=== PATIENT | female | born 1995 | race Caucasian/White ===

== ENCOUNTER 2019-01-05 10:10 | Emergency (ER) | payer OTHER, MEDICAID, SELFPAY ==
[2019-01-05 10:10] VITALS: BP 114/72; PULSE 95; RESP 18; TEMP 37.1; O2SAT 100
--- NOTE | 2019-01-05 10:13 | ED_ITS ---
HPI - Female Genitourinary General Chief complaint: Urogenital-Female Stated complaint: Bladder Infection Time Seen by Provider: 01/05/19 10:12 Source: patient Mode of arrival: ambulatory Limitations: no limitations History of Present Illness HPI Narrative: otherwise healthy 23-year-old female here for evaluation of several days of dysuria, hematuria, lower abdominal tenderness, lower back pain, urinary frequency. She states that several weeks ago she was treated for a bladder infection. She states this feels very similar to that. She was treated with a medication that sounds like it was Macrobid. She is unsure if this is exactly what it was. States that her symptoms resolved after the treatment without antibiotic however they now have returned. Prior to the dysuria couple weeks ago her last urinary infection was greater than 1 year ago. She has not had any vomiting or fevers. Related Data Previous Rx's Medication Instructions Recorded sulfamethoxazole-trimethoprim 1 tab PO BID 3 Days #6 tab 01/05/19 [Bactrim DS] Review of Systems Constitutional Denies fever(s) Cardiovascular Denies chest pain and Denies dyspnea Respiratory Denies dyspnea Gastrointestinal Gastrointestinal: Reports abdominal pain ( Lower abdomen), Denies diarrhea, Denies nausea and Denies vomiting Genitourinary Reports hematuria, Reports dysuria, Reports urinary hesitancy and Reports urinary urgency Musculoskeletal Denies myalgias and Denies arthralgias Integumentary/Breasts Denies rash Neurologic Denies behavioral changes Psychiatric Denies behavioral changes Hematologic/Lymphatic Denies easy bleeding and Denies easy bruising PFSH Medical History Healthy adult (Acute) Social History lives independently: Yes Smoking Status: Never smoker Social History lives independently: Yes Smoking Status: Never smoker Exam Initial Vital Signs Initial Vital Signs: Vital Signs Temperature 98.8 F 01/05/19 10:10 Pulse Rate 95 H 01/05/19 10:10 Respiratory Rate 18 01/05/19 10:10 Blood Pressure 114/72 01/05/19 10:10 Pulse Oximetry 100 01/05/19 10:10 Const General: cooperative, comfortable, well developed, well groomed and No acute distress Orientation: alert, awake and oriented x3 HENMT Head: normal to inspection and normocephalic Resp Effort & Inspection: normal respiratory effort Auscultation: clear to auscultation bilaterally Cardio Rate: regular rate Rhythm: regular rhythm Pulses: radial pulses present GI Inspection: non-distended Palpation: soft, No firm and No tender Back/Spine/Pelvis Back: No CVA tenderness Skin General: no rashes or lesions noted Neuro General: alert, awake and oriented x3 Extrem General: normal to inspection and capillary refill normal Psych Appearance: grossly normal and well kempt Course Orders Ordered: ED Orders 01/05/19 10:27 Ictotest Urine Stat Test Urine Stat Urinalysis and Microscopic Stat 01/05/19 10:54 Urine Culture Stat Vital Signs - 8 hr 01/05/19 10:10 Temperature 98.8 F Pulse Rate 95 H Respiratory Rate 18 Blood Pressure 114/72 Pulse Oximetry 100 [facility] - Female Genitourinary Lab Data Attestation: I reviewed the patient's lab results. Lab Results 01/05/19 01/05/19 Range/Units 10:27 10:27 Urine Color Red Urine Appearance Cloudy Urine pH 8.0 (4.5-8.0) Ur Specific [place] 1.020 (1.000-1.035) Urine Protein 3+ H (Negative) Urine Glucose (UA) Negative (Negative) g/dL Urine Ketones Negative (NEGATIVE) Urine Occult Blood 3+ H (Negative) Urine Nitrate Positive H (Negative) Urine Bilirubin 1+ H (NEGATIVE) Urine Ictotest Positive H (Negative) Urine Urobilinogen 0.2 (0.2) E.U./dL Ur Leukocyte Esterase 2+ H (NEGATIVE) Urine RBC 30-100/hpf H (0-5/HPF) Urine WBC 30-100/hpf H (0-5/HPF) Ur Squamous Epith Cells 5-10 /hpf H Urine Bacteria None seen (None) Ur Culture Indicated? Cult not indicated Urine Test Negative (Negative) [facility] Narrative Medical decision making narrative: with patient's symptoms today and her urinalysis I am concerned about a urinary tract infection. It sounds like they last urinary tract infection she was treated with Macrobid. She stated that she did not tolerate this medicine well. Will give her another antibiotic. I urine culture was ordered today to check sensitivities. This will help in the future if her symptoms do not improve. She was given return precautions. She expressed understanding and agreement with plan. She has no indication of pyelonephritis today. Discharge Plan Departure Patient Disposition: Home Clinical Impression: Urinary tract infection Qualifiers: Urinary tract infection type: acute cystitis Hematuria presence: with hematuria Qualified Code(s): N30.01 - Acute cystitis with hematuria Instructions: DI for Urinary Tract Infection (UTI) Activity Restrictions/Additional Instructions: Be sure you increase your fluid intake. Take the antibiotics as directed. Contact your primary care doctor for a follow-up. Return to the emergency department for any new or worsening symptoms Prescriptions: New sulfamethoxazole-trimethoprim [Bactrim DS] 800-160 mg tablet 1 tab PO BID 3 Days Qty: 6 RF: 0
[2019-01-05 10:29] LABS: Bacteria Urine None Seen
[2019-01-05 10:31] LABS: Appearance Urine UA CLOUDY; Bilirubin Urine UA 1+ (NEGATIVE); Color Urine UA RED; Glucose Urine UA NEGATIVE (Negative); Ketones Urine UA NEGATIVE (NEGATIVE); Leukocyte Esterase Urine UA 2+ (NEGATIVE); Nitrite Urine UA POSITIVE (Negative); Occult Blood Urine UA 3+ (Negative); Protein Urine UA 3+ (Negative); Urobilinogen Urine UA 0.2 E.U./dL (0.2)
[2019-01-05 10:47] LABS: Pregnancy Test Urine Negative (Negative)
[2019-01-05 10:52] LABS: RBC Urine 30-100/HPF (0-5/HPF); WBC Urine 30-100/HPF (0-5/HPF)
[2019-01-05 10:53] LABS: Culture Indicated Urine Cult Not Indicated; Squamous Epithelial Cell Urine 5-10 /HPF
[2019-01-05 11:05] LABS: Ictotest Urine Positive (Negative)
[2019-01-05 11:18] VITALS: BP 110/66; PULSE 73; RESP 16; O2SAT 100
== END 2019-01-05 11:20 | disposition home or self-care (01) ==
LOC: ED 11:21
PROVIDERS: Emergency Provider Emergency Medicine
DX: N30.01 Acute cystitis with hematuria (principal)
CPT/HCPCS: 81001; 81025; 87077; 87086; 87186; 99282; 99283

== ENCOUNTER → 2019-04-27 10:38 | Outpatient (CLI) | payer OTHER, MEDICAID, SELFPAY ==
[2019-04-27 12:15] LABS: Hematocrit 41.4 % (36-46); Hemoglobin 13.8 g/dL (12.0-16.0); Mean Corpuscular HGB Conc 33.3 % (30-36); Mean Corpuscular Hemoglobin 28.7 PG (26-34); Mean Corpuscular Volume 86.1 fL (80-100); Platelet Count 190 X10^3/uL (150-400); Red Blood Cell Count 4.81 X10^6/uL (4.0-5.2); Red Cell Distribution Width 13.9 % (11.6-14.8); White Blood Cell Count 5.8 X10^3/uL (4.5-11.0)
[2019-04-27 12:35] LABS: Alanine Aminotransferase 13 IU/L (9-52); Albumin 4.5 g/dL (3.5-5.0); Albumin Globulin Ratio 1.5 (1.0-2.8); Alkaline Phosphatase 81 U/L (38-126); Aspartate Aminotransferase 24 IU/L (14-36); Bilirubin Total 0.7 mg/dL (0.2-1.3); Blood Urea Nitrogen 9 mg/dL (7-17); Calcium 8.9 mg/dL (8.4-10.2); Carbon Dioxide 24 mmol/L (22-32); Chloride 106 mmol/L (98-107); Estimated Glomerular Filt Rate > 60.0 mL/min (>60); Glucose 80 mg/dL (70-100); HEMOLYSIS 33 (0-50); Potassium 4.4 mmol/L (3.4-5.1); Sodium 139 mmol/L (137-145); Total Protein 7.5 g/dL (6.3-8.2)
== END ==
PROVIDERS: Visit Provider Nurse Practitioner Family
DX: N93.9 Abnormal uterine and vaginal bleeding, unspecified (principal); Z00.00 Encounter for general adult medical examination without abnormal findings
CPT/HCPCS: 36415; 80053; 85027

== ENCOUNTER 2019-05-17 05:54 | Emergency (ER) | payer OTHER, MEDICAID, SELFPAY ==
[2019-05-17 05:56] VITALS: BP 135/70; PULSE 107; RESP 20; TEMP 37.6; O2SAT 98; BMI 23.6
--- NOTE | 2019-05-17 06:06 | ED.FEVER ---
HPI - Fever General Chief Complaint: Upper Respiratory Symptoms Stated Complaint: fever 104 temp body aches Time Seen by Provider: 05/17/19 05:57 Source: patient and other (boyfriend) Mode of arrival: ambulatory Limitations: no limitations History of Present Illness HPI Narrative: 23-year-old female comes emergency department with complaint of fever this morning about 5:00 a.m.. Patient states she was 104 F. She states she did take some Tylenol afterwards. Patient states that she has felt feverish body aches for about 2 days. Patient states she has not had any nasal congestion but has had a little bit of a cough which is nonproductive. She denies any chest pain, no shortness of breath. She also complains of sore throat. She denies any ear pain. She has had a little bit of mild nausea but no vomiting. She had some loose stools yesterday, no abdominal pain. Some urinary frequency with small amounts. No dysuria. She denies any rashes wounds or skin changes. No headaches or neck pain. No vaginal bleeding or discharge. She did have her Nexplanon removed a couple weeks ago. Her period was just before that. Related Data Home Medications Medication Instructions Recorded Confirmed ibuprofen 100 mg tablet 200 mg PO QID PRN 04/26/19 04/27/19 Previous Rx's Medication Instructions Recorded ethynodiol diacetate-ethinyl 1 tab PO DAILY #84 tab 04/27/19 estradiol 1 mg-35 mcg tablet Allergies Allergy/AdvReac Type Severity Reaction Status Date / Time amoxicillin Allergy Severe Hives, lip Verified 05/17/19 06:44 swelling, difficulty breathing Review of Systems Review of Systems ROS Unobtainable: All systems reviewed & are unremarkable except as noted in HPI and below [facility]LY [facility], [facility] Medical History Healthy adult (Acute) Acne (Chronic) Anorexia nervosa (Chronic ~2012) Anxiety (Chronic ~2016) Asthma (Chronic) Bulimia (Chronic ~2012) Frequent urinary tract infections (Chronic ~2016) Migraines (Chronic) Surgical History Nexplanon insertion (Chronic ~2015) [place] teeth removed (Resolved ~2015) Family History (Updated 04/27/19 @ 13:21 by Luiza Loera) Father No problems noted. Mother Hypertension High cholesterol Mental health problem Social History (Updated 01/05/19 @ 10:30 by Chucho Belle DO) lives independently: Yes Smoking Status: Never smoker second hand exposure: No alcohol intake: current (1-2 glasses of wine/night) substance use type: marijuana (smoke, QHS) Family History Father No problems noted. Mother Hypertension High cholesterol Mental health problem Social History lives independently: Yes Smoking Status: Never smoker second hand exposure: No alcohol intake: current (1-2 glasses of wine/night) substance use type: marijuana (smoke, QHS) Exam Narrative Exam Narrative: GEN: well nourished, well appearing female, alert and oriented x 3, patient appears to be in no acute distress. HEENT: Atraumatic, pupils are equal round reactive to light, extraocular movements are intact, nares are clear, TMs are clear with no fluid, there is no conjunctival pallor. Throat is erythematous with slightly enlarged tonsils without any exudates, erythema, tonsillar enlargement or uvular deviation, no meningeal signs. HEART: Regular rate and rhythm without murmur, clicks, rubs. LUNGS:Lungs clear to auscultation, no wheezes, rales, crackles, chest moves symmetrically ABD:bowel sounds normal, soft, non-tender, no guarding, rebound, rigidity, no masses noted, no hepatosplenomegaly :No CVA tenderness MSCL: Non-tender, no muscle atrophy, muscles strength 5/5 upper and lower extremities, full range of motion, normal gait NEURO:CN 2-12 intact, sensation normal Initial Vital Signs Initial Vital Signs: Vital Signs Temperature 99.7 F H 05/17/19 05:56 Pulse Rate 107 H 05/17/19 05:56 Respiratory Rate 20 05/17/19 05:56 Blood Pressure 135/70 05/17/19 05:56 Pulse Oximetry 98 05/17/19 05:56 Course Orders Ordered: ED Orders 05/17/19 06:40 Urine Microscopic Stat Vital Signs - 8 hr 05/17/19 05:56 Temperature 99.7 F H Pulse Rate 107 H Respiratory Rate 20 Blood Pressure 135/70 Pulse Oximetry 98 MDM - Fever Lab Data Point of Care Testing Test Results Negative Rapid Strep A Negative Urine Dip Bedside Urine Glucose Negative Bedside Urine Bilirubin - Negative Bedside Urine Ketone ++ 40 Urine Specific [place] 1.020 Bedside Urine Occult Blood - Negative Bedside Urine pH 7.0 Bedside Urine Protein +/- 15 Bedside Urine Urobilinogen +/- 1mg Bedside Urine Nitrite - Negative Bedside Urine Leukocytes - Negative Esterase MDM Narrative Medical decision making narrative: Patient appears well here in the emergency department. Reporting here strep is negative. poc urine is negative for infection, negative for . Patient did mention in passing that she has had some irritation in her groin were her underwear touches. She states that is very mild and defers pelvic exam despite being offered and discussed could be source of infection. Patient states it is only very mild. Discharge Plan Departure Patient Disposition: Home Clinical Impression: Pharyngitis Instructions: DI for Pharyngitis/Tonsillopharyngitis -- Adult Activity Restrictions/Additional Instructions: Follow-up with primary care in the next 3-5 days if your symptoms have not resolved. Call for an appointment. May continue ibuprofen and/or Tylenol as needed for fevers greater than 100.4 F. Return to the emergency department for persistent fevers that do not respond for ibuprofen or Tylenol, severe headaches, severe neck pain, new chest pain, shortness of breath, persistent vomiting, black or bloody stools, new rashes or skin changes, difficulty with breathing, stridor high-pitched wheezing when breathing, muffled voice or other new or concerning symptoms. Prescriptions: No Action ibuprofen 100 mg tablet 200 mg PO QID PRNRF: 0 ethynodiol diac-eth estradiol [Zovia (28)] 1-35 mg-mcg tablet 1 tab PO DAILY Qty: 84 RF: 3
--- NOTE | 2019-05-17 07:02 | ED.URI ---
HPI - URI/Sore Throat General Chief Complaint: Upper Respiratory Symptoms Stated Complaint: fever 104 temp body aches Time Seen by Provider: 05/17/19 05:57 Source: patient and other (boyfriend) Mode of arrival: ambulatory Limitations: no limitations Related Data Home Medications Medication Instructions Recorded Confirmed ibuprofen 100 mg tablet 200 mg PO QID PRN 04/26/19 04/27/19 Previous Rx's Medication Instructions Recorded ethynodiol diacetate-ethinyl 1 tab PO DAILY #84 tab 04/27/19 estradiol 1 mg-35 mcg tablet Allergies Allergy/AdvReac Type Severity Reaction Status Date / Time amoxicillin Allergy Severe Hives, lip Verified 05/17/19 06:44 swelling, difficulty breathing PFS Medical History Healthy adult (Acute) Acne (Chronic) Anorexia nervosa (Chronic ~2012) Anxiety (Chronic ~2016) Asthma (Chronic) Bulimia (Chronic ~2012) Frequent urinary tract infections (Chronic ~2016) Migraines (Chronic) Surgical History Nexplanon insertion (Chronic ~2015) [place] teeth removed (Resolved ~2015) Family History (Updated 04/27/19 @ 13:21 by Luiza Loera) Father No problems noted. Mother Hypertension High cholesterol Mental health problem Social History (Updated 01/05/19 @ 10:30 by Chucho Belle DO) lives independently: Yes Smoking Status: Never smoker second hand exposure: No alcohol intake: current (1-2 glasses of wine/night) substance use type: marijuana (smoke, QHS) Family History Father No problems noted. Mother Hypertension High cholesterol Mental health problem Social History lives independently: Yes Smoking Status: Never smoker second hand exposure: No alcohol intake: current (1-2 glasses of wine/night) substance use type: marijuana (smoke, QHS) Exam Initial Vital Signs Initial Vital Signs: Vital Signs Temperature 99.7 F H 05/17/19 05:56 Pulse Rate 107 H 05/17/19 05:56 Respiratory Rate 20 07/17/19 05:56 Blood Pressure 135/70 07/17/19 05:56 Pulse Oximetry 98 05/17/19 05:56 Course Orders Ordered: ED Orders 05/17/19 06:40 Urine Microscopic Stat Vital Signs - 8 hr 05/17/19 05:56 Temperature 99.7 F H Pulse Rate 107 H Respiratory Rate 20 Blood Pressure 135/70 Pulse Oximetry 98 MDM - URI/Sore Throat Lab Data Point of Care Testing Test Results Negative Rapid Strep A Negative Urine Dip Bedside Urine Glucose Negative Bedside Urine Bilirubin - Negative Bedside Urine Ketone ++ 40 Urine Specific [place] 1.020 Bedside Urine Occult Blood - Negative Bedside Urine pH 7.0 Bedside Urine Protein +/- 15 Bedside Urine Urobilinogen +/- 1mg Bedside Urine Nitrite - Negative Bedside Urine Leukocytes - Negative Esterase Discharge Plan Departure Patient Disposition: Home Clinical Impression: Pharyngitis Instructions: DI for Pharyngitis/Tonsillopharyngitis -- Adult Activity Restrictions/Additional Instructions: Follow-up with primary care in the next 3-5 days if your symptoms have not resolved. Call for an appointment. May continue ibuprofen and/or Tylenol as needed for fevers greater than 100.4 F. Return to the emergency department for persistent fevers that do not respond for ibuprofen or Tylenol, severe headaches, severe neck pain, new chest pain, shortness of breath, persistent vomiting, black or bloody stools, new rashes or skin changes, difficulty with breathing, stridor high-pitched wheezing when breathing, muffled voice or other new or concerning symptoms. Prescriptions: No Action ibuprofen 100 mg tablet 200 mg PO QID PRNRF: 0 ethynodiol diac-eth estradiol [Zovia E ()] 1-35 mg-mcg tablet 1 tab PO DAILY Qty: 84 RF: 3
[2019-05-17 07:03] VITALS: BP 130/66; PULSE 85; RESP 16; TEMP 36.7; O2SAT 100
[2019-05-17 07:08] LABS: RBC Urine None Seen (0-5/HPF)
[2019-05-17 07:19] LABS: Bacteria Urine Moderate (10-30); Mucus Urine 3+ (Negative); Squamous Epithelial Cell Urine 5-10 /HPF (0-5/HPF); WBC Urine 0-1/HPF (0-5/HPF)
== END 2019-05-17 07:03 | disposition home or self-care (01) ==
PROVIDERS: Emergency Provider Emergency Medicine
DX: J02.9 Acute pharyngitis, unspecified (principal)
CPT/HCPCS: 81003; 81015; 81025; 87880; 99282

== ENCOUNTER 2019-05-19 21:23 | Emergency (ER) | payer OTHER, MEDICAID, SELFPAY ==
[2019-05-19 21:31] VITALS: BP 143/91; PULSE 97; RESP 16; TEMP 37.9; O2SAT 98; BMI 23.6
[2019-05-19] MEDS: IBUPROFEN 400 MG TABLET 800 MG PO (23:12)
--- NOTE | 2019-05-19 23:15 | ED_ITS ---
HPI - URI/Sore Throat General Chief Complaint: Upper Respiratory Symptoms Stated Complaint: fever,chest pain,sore throat Time Seen by Provider: 05/19/19 22:43 Source: patient Mode of arrival: ambulatory Limitations: no limitations History of Present Illness HPI Narrative: The patient complains of sore throat for 3 days. She has pain with swelling, she is very uncomfortable and complains not been able sleep at night. She presented 3 days ago, the day of onset of symptoms. At that time she apparently had a fever 104?. Evaluation revealed slight erythema, no purulent drainage in the oropharynx. Strep testing was negative. She returns with ongoing symptoms, and again the complaints of inability to sleep. She tells me she is drinking plenty fluids. She supposed using Tylenol or Advil for pain. She last took a dose of Tylenol this morning. She has no ear pressure, sinus pressure or nasal drainage. She is not having productive cough. She has no history of asthma or allergies. She has no GI symptoms. She has no chronic illness. Related Data Home Medications Medication Instructions Recorded Confirmed ibuprofen 100 mg tablet 200 mg PO QID PRN 04/26/19 04/27/19 Previous Rx's Medication Instructions Recorded ethynodiol diacetate-ethinyl 1 tab PO DAILY #84 tab 04/27/19 estradiol 1 mg-35 mcg tablet Allergies Allergy/AdvReac Type Severity Reaction Status Date / Time amoxicillin Allergy Severe Hives, lip Verified 05/19/19 21:33 swelling, difficulty breathing Review of Systems Constitutional Reports as per HPI, Reports system reviewed and no additional complaints, except as docu, Reports body ache(s) and Reports fever(s) Comments: Not sleeping Eyes Denies eye discharge ENT Ears, Nose, Mouth, and Throat: Denies otalgia, Denies facial pain, Reports neck pain and Reports sore throat Cardiovascular Denies chest pain and Denies dyspnea Respiratory Denies cough and Denies dyspnea Gastrointestinal Gastrointestinal: Denies abdominal pain Musculoskeletal Reports neck pain Integumentary/Breasts Denies rash FORMERLY [facility], [facility] Medical History Healthy adult (Acute) Acne (Chronic) Anorexia nervosa (Chronic ~2012) Anxiety (Chronic ~2016) Asthma (Chronic) Bulimia (Chronic ~2012) Frequent urinary tract infections (Chronic ~2017) Migraines (Chronic) Surgical History Nexplanon insertion (Chronic ~2015) [place] teeth removed (Resolved ~2015) Family History Father No problems noted. Mother Hypertension High cholesterol Mental health problem Social History lives independently: Yes Smoking Status: Never smoker second hand exposure: No alcohol intake: current (1-2 glasses of wine/night) substance use type: marijuana (smoke, QHS) Family History Father No problems noted. Mother Hypertension High cholesterol Mental health problem Social History lives independently: Yes Smoking Status: Never smoker second hand exposure: No alcohol intake: current (1-2 glasses of wine/night) substance use type: marijuana (smoke, QHS) Exam Initial Vital Signs Initial Vital Signs: Vital Signs Temperature 100.2 F H 05/19/19 21:31 Pulse Rate 97 H 05/19/19 21:31 Respiratory Rate 16 05/19/19 21:31 Blood Pressure 143/91 H 05/19/19 21:31 Pulse Oximetry 98 05/19/19 21:31 Const General: cooperative, healthy appearing and anxious (And crying) Orientation: alert, awake and oriented x3 HENMT Head: normocephalic and atraumatic Ears: external ears normal and TM's normal bilaterally Nose: nares normal Face and sinus: sinuses nontender Mouth: moist mucous membranes Throat: tonsils normal (Slightly enlarged. No erythema or exudate) and posterio r oropharynx abnormal (Mild erythema, no exudate) Eyes Conjunctivae: conjunctivae normal Sclera: sclerae normal Neck Neck: no meningeal signs and lymphadenopathy (Mild bilateral anterior) Resp Effort & Inspection: normal respiratory effort and able to speak in complete sentences Auscultation: clear to auscultation bilaterally, no rales, no rhonchi and no wheezes Cardio Rate: regular rate Rhythm: regular rhythm Heart Sounds: S1 normal, S2 normal and murmur Skin General: no rashes or lesions noted Neuro General: alert, awake and oriented x3 Extrem General: normal to inspection, full ROM and capillary refill normal Psych Appearance: grossly normal and well kempt Course Course Narrative: The patient had a negative strep test earlier this week. She is upset with the ongoing sore throat. She is upset that all to offer was Tylenol or Advil. I offered a Toradol shot to help with the pain immediately, she declined. Ibuprofen was given. A repeat strep was ordered, she left without further care. I advised her that the illness routinely vast about a week. I encouraged her that she would improve. She was crying, upset that I could not/would not do more. Orders Ordered: ED Orders 05/19/19 23:35 Strep Screen Stat Discontinued Medications Ibuprofen (Advil) 800 mg PO NOW ONE Stop: 05/19/19 23:07 Last Admin: 05/19/19 23:12 Dose: 800 mg Vital Signs - 8 hr 05/19/19 21:31 Temperature 100.2 F H Pulse Rate 97 H Respiratory Rate 16 Blood Pressure 143/91 H Pulse Oximetry 98 MDM - URI/Sore Throat Lab Data Point of Care Testing Rapid Strep A Negative Discharge Plan Departure Patient Disposition: Left Against Medical Advice Clinical Impression: Anxiety, Acute sore throat Discharge Date/Time: 05/20/19 00:00 Interventions: ED Discharge Assessment Last Done: 05/19/19 23:59 Prescriptions: No Action ibuprofen 100 mg tablet 200 mg PO QID PRNRF: 0 ethynodiol diac-eth estradiol [Zovia 35E (28)] 1-35 mg-mcg tablet 1 tab PO DAILY Qty: 84 RF: 3 Stand Alone Forms: Against Medical Advice
--- NOTE | 2019-05-19 23:57 | PC.NURSE ---
Patient requesting to leave without completion of evaluation. Pt signed out AMA.
== END 2019-05-20 | disposition left against medical advice (07) ==
PROVIDERS: Emergency Provider Emergency Medicine
DX: F41.9 Anxiety disorder, unspecified (principal); J02.9 Acute pharyngitis, unspecified; Z53.20 Procedure and treatment not carried out because of patient's decision for unspecified reasons
CPT/HCPCS: 87880; 99282